=== PATIENT | male | born 1980 | race Caucasian/White ===

== ENCOUNTER 2016-11-21 13:33 | Emergency (ER) | payer OTHER ==
[2016-11-21 16:39] LABS: BASOPHIL % 0.3 % (0-2); PLATELET COUNT 288 x10^3mcL (130-400); RED CELL DISTRIBUTION WIDTH 13.8 % (11.5-14.5)
[2016-11-21 16:41] LABS: CALCIUM 9.5 mg/dL (8.5-10.1); CARBON DIOXIDE 28.1 mmol/L (21-32); CHLORIDE SERUM 98 mmol/L (98-107); GFR1 > 60 mL/min; GLUCOSE SERUM 98 mg/dL (74-106); POTASSIUM SERUM 4.3 mmol/L (3.5-5.1); SODIUM SERUM 137 mmol/L (136-145)
[2016-11-21 16:47] LABS: ALBUMIN 4.7 g/dL (3.4-5.0); ALKALINE PHOSPHATASE 42 U/L (46-116); ALT/SGPT 36 U/L (16-63); AST/SGOT 27 U/L (15-37); BILIRUBIN TOTAL 1.18 mg/dL (0.20-1.00); MAGNESIUM 1.8 mg/dL (1.8-2.4); TOTAL PROTEIN, SERUM 8.1 g/dL (6.4-8.2)
[2016-11-21 16:59] LABS: AMPHETAMINE QUAL UR NONE DETECTED (NEG <=1000)
[2016-11-21 18:36] VITALS: BP 147/92
== END 2016-11-21 19:02 | disposition home or self-care (01) ==
LOC: ED 13:33
PROVIDERS: Emergency Medicine
DX: F43.20 Adjustment disorder, unspecified (principal); F10.129 Alcohol abuse with intoxication, unspecified
CPT/HCPCS: G0480; J3411; J3475; J3490; J7030

== ENCOUNTER 2018-11-11 11:19 | Emergency (ER) | payer OTHER ==
[~2018-11-11] VITALS: Ht 175.3 cm; Wt 96.6 kg
[2018-11-11 11:21] VITALS: Ht 175.3 cm; Wt 96.6 kg
[2018-11-11 12:21] VITALS: BP 140/94
== END 2018-11-11 12:21 | disposition home or self-care (01) ==
LOC: ED 11:19
DX: H66.91 Otitis media, unspecified, right ear (principal)

== ENCOUNTER 2019-08-13 04:59 | Emergency (ER) | payer OTHER ==
[~2019-08-13] VITALS: Ht 175.3 cm; Wt 95.3 kg
[2019-08-13 05:07] VITALS: Ht 175.3 cm; Wt 95.3 kg
[2019-08-13 07:18] LABS: UA SPECIFIC GRAVITY >=1.030 (1.005-1.035); microscopic required? YES; urine erythrocyte 2+ (NEGATIVE)
[2019-08-13 07:20] LABS: BASOPHIL % 0.2 % (0-2); PLATELET COUNT 425 x10^3mcL (130-400); RED CELL DISTRIBUTION WIDTH 14.8 % (11.5-14.5)
[2019-08-13 07:29] LABS: AMPHETAMINE QUAL UR NONE DETECTED (See below)
[2019-08-13 07:29] LABS: CK-MB 0.9 ng/mL (0-3.6)
[2019-08-13 07:31] LABS: FREE T4 1.03 ng/dL (0.76-1.46); FREE THYROXINE INDEX 2.1 ug/dL (1.4-4.5); T4(THYROXINE) 6.5 ug/dL (4.7-13.3)
[2019-08-13 08:55] LABS: T3 TOTAL 1.23 ng/mL
[2019-08-13 09:35] LABS: CALCIUM 9.6 mg/dL (8.5-10.1); CARBON DIOXIDE 20.3 mmol/L (21-32); CHLORIDE SERUM 100 mmol/L (98-107); CREATININE SERUM 1.1 mg/dL (0.7-1.3); GFR1 > 60 mL/min; GLUCOSE SERUM 124 mg/dL (74-106); POTASSIUM SERUM 4.1 mmol/L (3.5-5.1); SODIUM SERUM 139 mmol/L (136-145)
[2019-08-13 09:56] LABS: ALBUMIN 4.4 g/dL (3.4-5.0); ALKALINE PHOSPHATASE 91 U/L (46-116); ALT/SGPT 34 U/L (16-63); AST/SGOT 30 U/L (15-37); BILIRUBIN TOTAL 0.49 mg/dL (0.20-1.00)
[2019-08-13 12:16] VITALS: BP 163/93
== END 2019-08-13 12:16 | disposition home or self-care (01) ==
LOC: ED 04:59
PROVIDERS: Specialist
DX: F10.280 Alcohol dependence with alcohol-induced anxiety disorder (principal); I10 Essential (primary) hypertension; Z88.0 Allergy status to penicillin; Y90.1 Blood alcohol level of 20-39 mg/100 ml
CPT/HCPCS: 36600; 84439; G0480; J2060; J3490; J7030; Q0092